=== PATIENT | female | born 1950 | race Hispanic/Latino ===

== ENCOUNTER 2018-05-28 08:24 | Day surgery (SDC) | payer MEDICARE ==
[~2018-05-28 08:24] MED LIST: ANCEF/STERILE WATER 2 GM/20 ML 2 GM/20 ML SYRINGE IV NR
[2018-05-28 09:32] LABS: Basophils # (Auto) 0.1 K/mm3 (0.0-0.1); Basophils % (Auto) 0.8 % (0.0-1.8); Eosinophils # (Auto) 0.1 K/mm3 (0.0-0.4); Eosinophils % (Auto) 1.4 % (0.0-4.3); Hematocrit 43.6 % (30.3-42.9); Hemoglobin 15.1 gm/dl (10.1-14.3); Lymphocytes % (Auto) 25.3 % (13.4-35.0); Mean Corpuscular HGB Conc 35 % (30-34); Mean Corpuscular Hemoglobin 30 pg (28-32); Mean Corpuscular Volume 86 fl (79-97); Monocytes # (Auto) 0.5 K/mm3 (0.0-0.8); Monocytes % (Auto) 6.8 % (0.0-7.3); Platelet Count 248 K/mm3 (140-440); Red Blood Count 5.05 M/mm3 (3.65-5.03); Red Cell Distribution Width 13.5 % (13.2-15.2)
[2018-05-28 09:45] LABS: BUN/Creatinine Ratio 23; Blood Urea Nitrogen 14 mg/dL (7-17); Calcium 9.5 mg/dL (8.4-10.2); Hemolysis Index 97
[2018-05-28 09:46] LABS: INR 1.13 (0.87-1.13)
[2018-05-28] MEDS: NACL 0.9% 1000 ML 1,000 ML IV SCH ×2 (10:31→12:45)
[2018-05-28] MEDS ORDERED: HEPARIN 10,000 UNITS/10 ML ONE (12:27)
[2018-05-28] MEDS ORDERED: HEPARIN/NS 5000 UNIT/500ML(CATH LAB) 1,000 ML IR ONE (12:27)
[2018-05-28] MEDS: VERSED ONE ×4 (12:44→13:15)
[2018-05-28] MEDS: SUBLIMAZE ONE ×4 (12:44→13:15)
[2018-05-28] MEDS: XYLOCAINE 2% INFILTRATI ONE ×3 (12:45→12:56)
[2018-05-28] MEDS: TORADOL ONE ×2 (13:13→13:15)
--- NOTE | 2018-05-28 13:27 | Short Stay Summary ---
Short Stay Documentation Date of service: 05/28/18 Narrative H&P: Venous compression with venous hypertension - History H&P: obtained from office - Allergies and Medications Current Medications: Allergies No Known Allergies Allergy (Unverified 05/28/18 08:25) Home Medications Medication Instructions Recorded Confirmed Last Taken Type Apixaban [Eliquis] 5 mg PO DAILY 05/28/18 05/28/18 05/28/18 07:00 History Cranberry 500 mg PO DAILY 05/28/18 05/28/18 05/28/18 07:00 History Magnesium Oxide [Magnesium] 1 tab PO BID 05/28/18 05/28/18 05/28/18 07:00 History Multivit-Min/Iron Fum/Folic AC 1 each PO DAILY 05/28/18 05/28/18 05/28/18 07:00 History [Biaou-Ofhbnht-Dvkoelvk Tablet] Potassium 99 mg PO BID 05/28/18 05/28/18 05/28/18 07:00 History Active Medications Cefazolin Sodium (Ancef/Sterile Water 2 Gm/20 Ml) 2 gm in 20 mls @ 80 mls/hr IV PREOP NR; Protocol Stop: 05/28/18 20:00 Sodium Chloride (Nacl 0.9% 1000 Ml) 1,000 mls @ 42 mls/hr IV DIRECT KARIN Last Admin: 05/28/18 12:45 Dose: 42 mls/hr - Brief post op/procedure progress note Date of procedure: 05/28/18 Pre-op diagnosis: Venous compression Post-op diagnosis: same Procedure: BLE venogram, IVUS, venoplasty and stent Anesthesia: local Surgeon: JONATAN HAYES Estimated blood loss: minimal Condition: stable - Disposition Condition at discharge: Good Disposition: [id number] TO HOME OR SELFCARE Short Stay Discharge Plan Activity: advance as tolerated Weight Bearing Status: Weight Bear as Tolerated Diet: regular Follow up with: PRIMARY CARE, [Primary Care Provider] - 7 Days
--- NOTE | 2018-05-28 13:33 | Operative Report ---
Operative Report Operative Report: Exam: Exam: Bilateral lower extremity venogram, intravascular ultrasound, venoplasty was stent placement Clinical indication: Patient with venous hypertension of bilateral lower extremities and extrinsic compression of her veins. Date: 05/28/2018 Procedure: Following an explanation of the risks, benefits and alternatives; written informed consent was obtained. The patient brought to the angiographic suite and placed in supine position on the examination table. Initial ultrasound evaluation of her legs demonstrated a patent femoral veins bilateral bilaterally. The patient's groin and proximal legs were prepped and draped in usual sterile fashion. 1% lidocaine was used for anesthesia. Under ultrasound guidance, the right femoral vein proximally was cannulated with a 7 cm 18-gauge needle. A 0.035 guidewire was advanced centrally under fluoroscopy. The needle was removed and a 5 Serbian sheath placed. Access to the left proximal femoral vein was obtained in a similar fashion and an additional 5 Serbian sheath placed. Venography performed to bilateral sheaths demonstrate significant compression of the lateral external and left common iliac vein. A decision made to evaluate further with intravascular ultrasound. The sheaths were upsized) sheaths bilaterally of the guidewires. Intravascular ultrasound was performed from the IVC to the sheath insertion site on the right. The IVC is widely patent. There is 40% stenosis of the right common iliac vein extending into a 60% stenosis involving the right external iliac vein, the right common femoral vein is diminutive multiple patent. Intravascular ultrasound was then performed through the left sheath. The left common iliac vein demonstrates 80% stenosis at this origin. A second separate 60% stenosis is present within the common iliac vein on the left. There is prestenotic dilatation proximal to both stenoses. A 16 X 90 mm Wallstent was advanced through the right sheath and deployed across the lesion extending from the common iliac vein into the external iliac vein. A second 16 X 90 mm Wallstent was advanced through the left sheath and deployed across the lesion to cover both lesions in the left common iliac vein and left external iliac vein. The stent was seated using 14 mm balloon. Post stent deployment imaging demonstrated reduction of the stenosis and residual less than 10% stenosis. At this point, the catheters, guidewires and sheaths were removed and hemostasis achieved using manual compression. Sterile compression dressings were then applied. Patient tolerated the procedure well. There were no immediate post procedure complications. Conscious sedation was performed under the guidance of radiologic nursing. Continuous cardiopulmonary monitoring was utilized. Impression: 1) Bilateral lower extremity venogram demonstrating significant compression of bilateral external iliac veins and left common iliac vein. 2) Intravascular ultrasound of the IVC, bilateral common iliac veins, bilateral external iliac veins, and bilateral common femoral veins as described. 3) Venoplasty and stent placement with reduction of the stenosis to less than 10%.
[2018-05-28 15:29] VITALS: BP 131/73
== END 2018-05-28 14:50 | disposition home or self-care (01) ==
LOC: CATHLABREC 08:24
PROVIDERS: ATTEND Radiology Diagnostic Radiology
DX: I87.1 Compression of vein (principal); I87.393 Chronic venous hypertension (idiopathic) with other complications of bilateral lower extremity; I48.91 Unspecified atrial fibrillation; M19.90 Unspecified osteoarthritis, unspecified site; Z79.899 Other long term (current) drug therapy; Z79.01 Long term (current) use of anticoagulants; Z95.0 Presence of cardiac pacemaker; Z98.890 Other specified postprocedural states; Z80.9 Family history of malignant neoplasm, unspecified
CPT/HCPCS: 36415; 37238; 37239; 37252; 37253; 75822; 76937; 80048; 85025; 85610; 85730; 99156; 99157; C1725; C1753; C1769; C1876; C1894; J1644; J1885; J2250; J3010; J7030; Q9967